=== PATIENT | male | born 1990 | race Caucasian/White ===

== ENCOUNTER 2020-07-21 13:55 | Emergency (ER) | payer OTHER ==
[~2020-07-21] VITALS: Ht 175.3 cm; Wt 77.3 kg
[2020-07-21] MEDS ORDERED: PROPARACAINE 0.5% OPHTH SOL 15ML OD ONE (15:55)
[2020-07-21] MEDS ORDERED: FLUORESCEIN OPHTH 1 MG STRIP OD ONE (15:55)
[2020-07-21 16:30] VITALS: BP 145/77
[2020-07-21] MEDS ORDERED: OCUF0.25 OP (16:37)
== END 2020-07-21 16:57 | disposition home or self-care (01) ==
LOC: M ED 13:55
DX: H11.31 Conjunctival hemorrhage, right eye (principal); H57.89 Other specified disorders of eye and adnexa